=== PATIENT | male | born 1975 | race Caucasian/White ===

== ENCOUNTER 2021-02-26 07:20 | Inpatient (IN) | payer OTHER, SELFPAY ==
[~2021-02-26] VITALS: Ht 180.3 cm; Wt 103.9 kg
[2021-02-26 07:20] VITALS: BP 101/69
--- NOTE | 2021-02-26 07:20 | NUR ---
PT BIBA AND PLACED IN ER BED 1 FOR COVID ISOLATION.
--- NOTE | 2021-02-26 07:30 | NUR ---
PATIENT SPO2 88-89%, PT PLACED ON 2L NC PER MD LURICH ORDER.
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
[2021-02-26] MEDS ORDERED: ACETAMINOPHEN EXTRA STRENGTH 500 MG TAB PO ONE (08:00)
[2021-02-26 08:05] LABS: BASOPHILS % (AUTO) 0.3 % (0.0-2.0); HEMATOCRIT 47.5 % (36-52); LYMPHOCYTES # (AUTO) 0.6 K/uL (2.0-11.5); LYMPHOCYTES % (AUTO) 16.6 % (20.5-51.1); MEAN CORPUSCULAR HEMOGLOBIN 32 pg (27-31); MEAN CORPUSCULAR HGB CONC 34 g/dL (33-37); MEAN CORPUSCULAR VOLUME 94.4 fL (80-94); MONOCYTES # (AUTO) 0.3 K/uL (0.8-1.0); MONOCYTES % (AUTO) 7.9 % (1.7-9.3); NEUTROPHILS # (AUTO) 2.5 K/uL (1.8-7.7); NEUTROPHILS % (AUTO) 75.2 % (42.2-75.2); PLATELET COUNT (AUTO) 105 K/uL (140-450); RED BLOOD CELL COUNT(AUTO) 5.03 MIL/uL (4.20-6.10); RED CELL DISTRIBUTION WIDTH 13.7 % (11.6-13.7); WHITE BLOOD COUNT (AUTO) 3.4 K/uL (4.8-10.8)
--- NOTE | 2021-02-26 08:15 | NUR ---
MD ULRICH AT BEDSIDE EVALUATING PT.
[2021-02-26] MEDS ORDERED: MORPHINE SULFATE 4 MG/ML SYR IVP ONE (08:20)
[2021-02-26] MEDS ORDERED: MORPHINE SULFATE 4 MG/ML SYR ONE (08:24)
[2021-02-26 08:52] LABS: ALBUMIN 2.8 g/dL (3.4-5.0); ANION GAP 10.5 (8-16); CARBON DIOXIDE 27.3 mmol/L (21-32); CREATININE 1.1 mg/dL (0.6-1.3); POTASSIUM 3.8 mmol/L (3.5-5.1); TOTAL BILIRUBIN 0.6 mg/dL (0.0-1.0)
--- NOTE | 2021-02-26 09:00 | NUR ---
RECEIVED LAB VALUE COVID +
--- NOTE | 2021-02-26 09:14 | NUR ---
PT GIVEN PITCHER OF WATER FOR C/O THIRST. DRANK 2 CUPS OF WATER.
--- NOTE | 2021-02-26 09:39 | NUR ---
SPOKE WITH SPOUSE CHERYLE AND PROVIDED HER WITH UPDATE ON PATIENT.
[2021-02-26] MEDS ORDERED: ONDANSETRON 4 MG/2 ML VIAL IVP PRN (11:05)
[2021-02-26] MEDS ORDERED: NACL 0.9% 1,000 ML IV ONE (11:05)
[2021-02-26] MEDS ORDERED: ENOXAPARIN 100 MG/ML SYR SUBQ SCH (11:10)
[2021-02-26] MEDS ORDERED: remdesivir COMMUNICATION ORDER 1 EA MISC MC PRN (11:10)
[2021-02-26] MEDS ORDERED: remdesivir CLINICAL MONITORING 1 EA MISC MC PRN (11:15)
[2021-02-26] MEDS ORDERED: cefTRIAXone 1,000 MG VIAL ONE (11:21)
[2021-02-26 11:29] LABS: ALBUMIN 2.9 g/dL (3.4-5.0); BILIRUBIN,DIRECT 0.2 mg/dL (0.0-0.3); TOTAL BILIRUBIN 0.5 mg/dL (0.0-1.0)
[2021-02-26] MEDS: DEXAMETHASONE 10 MG/ML VIAL IVP SCH (12:00)
[2021-02-26] MEDS: ENOXAPARIN 100 MG/ML SYR SUBQ SCH ×2 (12:05→22:23)
[2021-02-26] MEDS ORDERED: AZITHROMYCIN 500 MG INJ VIAL IV ONE (12:37)
[2021-02-26] MEDS: AZITHROMYCIN 500 MG in DEXTROSE 5% 250 ML IV SCH (12:56)
[2021-02-26] MEDS ORDERED: REMDESIVIR. 200 MG in NACL 0.9% 100 ML IV SCH (13:00)
--- NOTE | 2021-02-26 13:45 | NUR ---
PT C/O 9/10 BACK PAIN AND REQUESTING PAIN MEDICATION, WILL MEDICATE PER PRN ORDER.
[2021-02-26] MEDS: MORPHINE SULFATE 2 MG/ML SYR IVP PRN ×2 (13:54→23:06)
--- NOTE | 2021-02-26 15:12 | NUR ---
PATIENT OBSERVED RESTING IN BED, VSS, RR EVEN AND UNLABORED.
--- NOTE | 2021-02-26 16:15 | NUR ---
RECEIVED VERBAL ORDER FROM DR ROGERS FOR REGULAR DIET. CANCELLED NPO AND STRICT I/O ORDER.
--- NOTE | 2021-02-26 16:15 | NUR ---
[place] argueta in [facility] - 02/26/21 at 1719 by [id number] RECEIVED VERBAL ORDER FOR REGULAR DIET. CANCELLED NPO AND STRICT I/O ORDER.
--- NOTE | 2021-02-26 16:20 | NUR ---
MD ROGERS AT BEDSIDE SPEAKING WITH PATIENT.
--- NOTE | 2021-02-26 21:26 | NUR ---
Patient will be admitted to care of DR. ROGERS. Admited to TELEMMETRY. Will go to room 114. Belongings list completed. Report to DONOVAN KHALIL.
--- NOTE | 2021-02-26 21:30 | NUR ---
RECEIVED REPORT FROM ER NURSE FOR ADMISSION BED 115.
[2021-02-26 21:35] VITALS: BP 118/81
--- NOTE | 2021-02-26 21:35 | NUR ---
RECEIVED PT FROM ER TO MST UNIT VIA GURNEY. PT ABLE TO WALK FROM THE GURNEY TO THE BED. PT IS ON 2L NC, AND ON CARDIAC TELE BOX FOR MONITORING.
--- NOTE | 2021-02-26 22:23 | NUR ---
GAVE SCHEDULED LOVENOX SUBQ. PLT IS 105. PT TOLERATED WELL
--- NOTE | 2021-02-26 23:06 | NUR ---
PATIENT COMPLAINS OF 7/10 CHEST PAIN. MEDICATED WITH PRN MORPHINE FOR PAIN RELIEF.
[2021-02-27] VITALS: BP 108/66
--- NOTE | 2021-02-27 | NUR ---
PATIENT ASLEEP, NO SIGNS OF DISTRESS, 2L NC, SR 78 HR ON TELEMETRY. SAFETY MEASURES IMPLEMENTED. CALL LIGHT WITHIN REACH.
--- NOTE | 2021-02-27 02:00 | NUR ---
PATIENT ASLEEP, NO SIGNS OF DISTRESS, ON 2L NC, SR ON TELE. SAFETY MEASURES IMPLEMENTED. CALL LIGHT WITHIN REACH.
[2021-02-27 04:00] VITALS: BP 117/68
--- NOTE | 2021-02-27 04:00 | NUR ---
PATIENT RESTING ON BED. NO SIGNS OF DISTRESS. 2L NC @ 97. SR, HR 78 ON TELE, SAFETY MEASURES IMPLEMENTED. CALL LIGHT WITHIN REACH.
--- NOTE | 2021-02-27 07:34 | NUR ---
ENDORSE PT TO DAY SHIFT NURSE FOR CONTINUITY OF CARE. PT ON STABLE CONDITION.
[2021-02-27 07:35] LABS: BASOPHILS % (AUTO) 0.2 % (0.0-2.0); EOSINOPHILS % (AUTO) 0.1 % (0.0-4.0); HEMATOCRIT 47.3 % (36-52); HEMOGLOBIN 15.7 g/dL (12.0-18.0); LYMPHOCYTES # (AUTO) 0.8 K/uL (2.0-11.5); LYMPHOCYTES % (AUTO) 22.8 % (20.5-51.1); MEAN CORPUSCULAR HEMOGLOBIN 32 pg (27-31); MEAN CORPUSCULAR HGB CONC 33 g/dL (33-37); MEAN CORPUSCULAR VOLUME 95.5 fL (80-94); MONOCYTES # (AUTO) 0.5 K/uL (0.8-1.0); MONOCYTES % (AUTO) 14.7 % (1.7-9.3); NEUTROPHILS # (AUTO) 2.2 K/uL (1.8-7.7); NEUTROPHILS % (AUTO) 62.2 % (42.2-75.2); PLATELET COUNT (AUTO) 121 K/uL (140-450); RED BLOOD CELL COUNT(AUTO) 4.96 MIL/uL (4.20-6.10); RED CELL DISTRIBUTION WIDTH 13.9 % (11.6-13.7); WHITE BLOOD COUNT (AUTO) 3.6 K/uL (4.8-10.8)
[2021-02-27 07:41] LABS: ALBUMIN 2.8 g/dL (3.4-5.0); BILIRUBIN,DIRECT 0.2 mg/dL (0.0-0.3); TOTAL BILIRUBIN 0.6 mg/dL (0.0-1.0)
--- NOTE | 2021-02-27 07:44 | NUR ---
PATIENT HAS BEEN SCREENED AND CATEGORIZED MODERATE NUTRITION RISK. PATIENT WILL BE SEEN WITHIN 3-5 DAYS OF ADMISSION. 02/28/21 03/02/[address]
[2021-02-27 07:45] LABS: ALBUMIN 2.8 g/dL (3.4-5.0); ANION GAP 10.4 (8-16); CARBON DIOXIDE 28.5 mmol/L (21-32); CREATININE 0.9 mg/dL (0.6-1.3); MAGNESIUM 1.7 mg/dL (1.8-2.4); POTASSIUM 3.9 mmol/L (3.5-5.1); TOTAL BILIRUBIN 0.6 mg/dL (0.0-1.0)
[2021-02-27] MEDS: ZINC SULF 220 MG CAP PO SCH (09:26)
[2021-02-27] MEDS: ASCORBIC ACID 500 MG TAB PO SCH (09:26)
[2021-02-27] MEDS: DEXAMETHASONE 10 MG/ML VIAL IVP SCH (09:27)
[2021-02-27] MEDS: MORPHINE SULFATE 2 MG/ML SYR IVP PRN (09:27)
[2021-02-27] MEDS: ENOXAPARIN 100 MG/ML SYR SUBQ SCH ×2 (09:30→20:32)
[2021-02-27 12:00] VITALS: BP 92/65
[2021-02-27] MEDS: ACETAMINOPHEN 325 MG TAB PO PRN (15:31)
[2021-02-27] MEDS: AZITHROMYCIN 500 MG in DEXTROSE 5% 250 ML IV SCH (15:34)
[2021-02-27] MEDS: REMDESIVIR. 100 MG in NACL 0.9% 100 ML IV SCH (15:35)
[2021-02-27 16:00] VITALS: BP 92/65
--- NOTE | 2021-02-27 19:40 | NUR ---
RECEIVED REPORT FROM AM NURSE FOR CONTINUITY OF CARE. PATIENT IN BED RESTING. NO S/S OF RESPIRATORY DISTRESS. ALL SAFETY MEASURES ARE IN PLACE. CALL LIGHT WITHIN REACH. WILL CONTINUE TO MONITOR.
[2021-02-27 20:00] VITALS: BP 110/74
--- NOTE | 2021-02-27 20:32 | NUR ---
DUE MEDS GIVEN PER MD ORDERED. NO COMPLAINTS OF PAIN AT THIS TIME.
[2021-02-28] VITALS: BP 96/62
[2021-02-28 04:00] VITALS: BP 96/64
--- NOTE | 2021-02-28 07:15 | NUR ---
ENDORSED TO AM NURSE FOR CONTINUITY OF CARE. PATIENT IS STABLE.
[2021-02-28 07:38] LABS: ALBUMIN 2.5 g/dL (3.4-5.0); BILIRUBIN,DIRECT 0.2 mg/dL (0.0-0.3); TOTAL BILIRUBIN 0.3 mg/dL (0.0-1.0)
[2021-02-28 08:00] VITALS: BP 109/69
--- NOTE | 2021-02-28 08:36 | NUR ---
Intermittent coughing and shortness of breath with activity noted, taught importance of cough and deep breathing. Taught importance of proning and patient verbalized understanding.
[2021-02-28] MEDS: DEXAMETHASONE 10 MG/ML VIAL IVP SCH (11:53)
[2021-02-28] MEDS: ASCORBIC ACID 500 MG TAB PO SCH (11:53)
[2021-02-28] MEDS: ZINC SULF 220 MG CAP PO SCH (11:53)
[2021-02-28] MEDS: ENOXAPARIN 100 MG/ML SYR SUBQ SCH ×2 (11:55→21:03)
[2021-02-28] MEDS: REMDESIVIR. 100 MG in NACL 0.9% 100 ML IV SCH (14:57)
[2021-02-28] MEDS: AZITHROMYCIN 500 MG in DEXTROSE 5% 250 ML IV SCH (14:58)
[2021-02-28 18:00] VITALS: BP 109/69
--- NOTE | 2021-02-28 19:35 | NUR ---
RECEIVED REPORT FROM AM NURSE. PATIENT IN BED RESTING WITH O2 VIA NC AT 2L TOLERATING WELL. NO SOB NOTED. SAFETY MEASURES IN PLACE. CALL LIGHT WITHIN REACH.
[2021-02-28 20:00] VITALS: BP 147/67
--- NOTE | 2021-02-28 21:03 | NUR ---
LOVENOX GIVEN ORDERED.
--- NOTE | 2021-02-28 21:25 | NUR ---
PT SLEEPING COMFORTABLY ON 2LNC f22 SPO2 96% HR 61 W/ NO DISTRESS NOTED AT THIS TIME WILL CONTINUE TO MONITOR
[2021-03-01] VITALS (14 sets, daily range): BP systolic 106–128; BP diastolic 58–78
[2021-03-01] MEDS: MORPHINE SULFATE 2 MG/ML SYR IVP PRN ×2 (02:43→18:30)
--- NOTE | 2021-03-01 02:43 | NUR ---
COMPLAINED OF MODERATE BACK PAIN. MORPHINE GIVEN ORDERED.
--- NOTE | 2021-03-01 03:39 | NUR ---
PT SLEEPING COMFORTABLY W/ NO DISTRESS NOTED PT WAS PLACED ON RA W/ SPO2 92/93% HR 63 5 MIN POST TITRATION [id number] RN AND WILL CONTINUE TO MONITOR
[2021-03-01] MEDS: ACETAMINOPHEN 325 MG TAB PO PRN (06:56)
--- NOTE | 2021-03-01 06:56 | NUR ---
COMPLAINED OF MILD PAIN, TYLENOL GIVEN ORDERED.
--- NOTE | 2021-03-01 07:30 | NUR ---
RECEIVED REPORT FROM TRANSPLANT WORKER. PATIENT AOX4, ON ROOM AIR, SATURATING WELL. NO C/O PAIN, RESPIRATIONS EVEN AND UNLABORED. NO S/S OF SOB OR DISTRESS NOTED. ON DROPLET ISOLATION FOR POSITIVE COVID. IV ON LAC 20G ON SL. D SAFETY PRECAUTIONS IN PLACE, CALL LIGHT WITHIN REACH, WILL CONTINUE TO MONITOR PATIENT.
--- NOTE | 2021-03-01 07:50 | NUR ---
ENDORSED TO AM NURSE FOR CONTINUITY OF CARE. PATIENT IS IN STABLE CONDITION.
[2021-03-01 08:18] LABS: ALBUMIN 2.6 g/dL (3.4-5.0); BILIRUBIN,DIRECT 0.1 mg/dL (0.0-0.3); TOTAL BILIRUBIN 0.3 mg/dL (0.0-1.0)
[2021-03-01] MEDS: DEXAMETHASONE 10 MG/ML VIAL IVP SCH (09:11)
[2021-03-01] MEDS: ASCORBIC ACID 500 MG TAB PO SCH (09:11)
[2021-03-01] MEDS: ZINC SULF 220 MG CAP PO SCH (09:11)
[2021-03-01] MEDS: ENOXAPARIN 100 MG/ML SYR SUBQ SCH ×2 (09:12→21:15)
--- NOTE | 2021-03-01 09:30 | NUR ---
DUE MORNING MEDS GIVEN, TOLERATED WELL
--- NOTE | 2021-03-01 10:45 | NUR ---
RESTING IN BED, NO C/O PAIN, WITH C/O SLIGHT SOB, O2SAT 93%. PLACED ON 2L O2 NC FOR COMFORT
--- NOTE | 2021-03-01 11:10 | NUR ---
SEEN BY JUAN ANTONIO TEJADA. NOTIFIED ABOUT EPISODE OF BRADYCARDIA WITH LONG PAUSES YESTERDAY. ORDERED TO TRANSFER TO ICU FOR MONITORING WITH EXTERNAL PACEMAKER TO STANDBY AT RATE OF 50BPM WITH THE ENERGY OUTPUT NEEDED
[2021-03-01] MEDS: AZITHROMYCIN 500 MG in DEXTROSE 5% 250 ML IV SCH (12:00)
[2021-03-01] MEDS: REMDESIVIR. 100 MG in NACL 0.9% 100 ML IV SCH (13:00)
--- NOTE | 2021-03-01 14:00 | NUR ---
TRANSFERRED TO ICU BED 3, CONNECTED TO BEDSIDE MONITOR. VITAL SIGNS STABLE AT THIS TIME
[2021-03-01] MEDS ORDERED: MAG SULF 2000 MG/WATER PREMIX 50 ML IV SCH (15:00)
--- NOTE | 2021-03-01 16:47 | NUR ---
PT AWAKE, RESTING IN BED, NO C/O PAIN, NO RESPIRATORY DISTRESS
--- NOTE | 2021-03-01 18:30 | NUR ---
with episode of productive cough, sob, and chest pain. hob elevated, deep breathing instructed, morphine given as ordered
--- NOTE | 2021-03-01 18:52 | NUR ---
pt resting in bed, no c/o pain, no sob
--- NOTE | 2021-03-01 19:15 | NUR ---
RECEIVED PATIENT FROM AM SHIFT NURSE FOR CONTINUITY OF CARE. ALERT AND ABLE TO MAKE NEEDS KNOWN. RESPIRATIONS EVEN, UNLABORED. CONTINUES ON O2 2L VIA NC, O2SAT 98%. PATIENT HAS GOOD COUGH EFFORT. NO SOB NOTED AT THIS TIME. S1/S2 AUSCULTATED. NO C/O PAIN. SKIN WARM, DRY. SALINE LOCK TO RIGHT HAND 22G PATENT/INTACT, CURRENTLY INFUSING MAGNESIUM. ABDOMEN SOFT, NONTENDER, NONDISTENDED. BOWEL SOUNDS ACTIVE x4 QUADRANTS. PATIENT IS CONTINENT OF B/B. CALL LIGHT IN REACH. PLAN OF CARE DISCUSSED. ISOLATION PRECAUTIONS OBSERVED BY ALL STAFF.
--- NOTE | 2021-03-01 19:32 | NUR ---
LATE ENTRY; NS BOLUS ENDED AT 1218.
--- NOTE | 2021-03-01 21:30 | NUR ---
SPOKE TO CHERYLE AT [phone] AND GAVE HER AN UPDATE ON PATIENT'S CONDITION. PATIENT IS RESTING COMFORTABLY IN BED. NO S/S RESPIRATORY DISTRESS. PATIENT STATED HE WAS ANXIOUS ABOUT REMOVING THE NASAL CANNULA; PROVIDED EDUCATION REGARDING OXYGEN THERAPY. PATIENT VERBALIZED UNDERSTANDING BUT NEEDS REINFORCEMENT AND ENCOURAGEMENT. NO C/O PAIN. PATIENT IS CLEAN/DRY. CALL LIGHT IN REACH. ISOLATION PRECAUTIONS OBSERVED.
--- NOTE | 2021-03-01 23:00 | NUR ---
MADE ROUNDS. PATIENT IS ASLEEP. NO S/S RESPIRATORY DISTRESS. PATIENT WITH EPISODES OF BRADYCARDIA. CALL LIGHT IN REACH. ISOLATION PRECAUTIONS OBSERVED.
[2021-03-02] VITALS (18 sets, daily range): BP systolic 102–134; BP diastolic 55–75
--- NOTE | 2021-03-02 01:30 | NUR ---
PATIENT STATED THAT HE HAS A CPAP AT HOME AND WOULD LIKE TO TRY USING OUR CPAP AT NIGHT. OFFERED TO PUT HIM ON TONIGHT BUT HE STATED THAT HE WAS COMFORTABLE AT THIS TIME AND WOULD LIKE TO JUST SLEEP WITHOUT IT TONIGHT. WILL ENDORSE TO AM SHIFT AND RT REGARDING PATIENT'S WISHES.
--- NOTE | 2021-03-02 03:30 | NUR ---
PATIENT IS ASLEEP. NO S/S RESPIRATORY DISTRESS. PATIENT CLEAN/DRY. CALL LIGHT IN REACH. ISOLATION PRECAUTIONS OBSERVED.
--- NOTE | 2021-03-02 05:12 | NUR ---
ALL NEEDS ANTICIPATED AND MET. PATIENT IS RESTING COMFORTABLY IN BED. NO S/S RESPIRATORY DISTRESS. NO C/O PAIN. PATIENT CLEAN/DRY. CALL LIGHT IN REACH. ISOLATION PRECAUTIONS OBSERVED.
[2021-03-02 06:04] LABS: ALBUMIN 2.6 g/dL (3.4-5.0); BILIRUBIN,DIRECT 0.1 mg/dL (0.0-0.3); TOTAL BILIRUBIN 0.3 mg/dL (0.0-1.0)
--- NOTE | 2021-03-02 07:27 | NUR ---
RECEIVED REPORT FROM AIRFIELD OPERATIONS SPECIALIST. PATIENT AOX4, ON 3L O2 VIA NC, SATURATING WELL. NO C/O PAIN, RESPIRATIONS EVEN AND UNLABORED. NO S/S OF SOB OR DISTRESS NOTED. SB ON MONITOR, HR 57. ON DROPLET ISOLATION FOR POSITIVE COVID. IV ON RH 22G ON SL. SAFETY PRECAUTIONS IN PLACE, CALL LIGHT WITHIN REACH, WILL CONTINUE TO MONITOR PATIENT.
[2021-03-02 08:24] LABS: ANION GAP 12.2 (8-16); CARBON DIOXIDE 27.9 mmol/L (21-32); CREATININE 0.8 mg/dL (0.6-1.3); POTASSIUM 4.1 mmol/L (3.5-5.1)
[2021-03-02] MEDS: ENOXAPARIN 100 MG/ML SYR SUBQ SCH ×2 (08:31→21:07)
[2021-03-02] MEDS: ASCORBIC ACID 500 MG TAB PO SCH (08:31)
[2021-03-02] MEDS: DEXAMETHASONE 10 MG/ML VIAL IVP SCH (08:31)
[2021-03-02] MEDS: ZINC SULF 220 MG CAP PO SCH (08:31)
[2021-03-02 08:35] LABS: BASOPHILS % (AUTO) 0.2 % (0.0-2.0); EOSINOPHILS % (AUTO) 0.1 % (0.0-4.0); HEMOGLOBIN 15.8 g/dL (12.0-18.0); LYMPHOCYTES % (AUTO) 16.7 % (20.5-51.1); MEAN CORPUSCULAR HEMOGLOBIN 32 pg (27-31); MEAN CORPUSCULAR HGB CONC 33 g/dL (33-37); MEAN CORPUSCULAR VOLUME 95.7 fL (80-94); MONOCYTES % (AUTO) 17.5 % (1.7-9.3); NEUTROPHILS # (AUTO) 3.9 K/uL (1.8-7.7); NEUTROPHILS % (AUTO) 65.5 % (42.2-75.2); PLATELET COUNT (AUTO) 172 K/uL (140-450); RED BLOOD CELL COUNT(AUTO) 5.02 MIL/uL (4.20-6.10); WHITE BLOOD COUNT (AUTO) 5.9 K/uL (4.8-10.8)
--- NOTE | 2021-03-02 10:36 | NUR ---
SEEN BY DR HE AND DR TONY
--- NOTE | 2021-03-02 10:36 | NUR ---
DUE MORNING MEDS GIVEN, TOLERATED WELL
[2021-03-02] MEDS: AZITHROMYCIN 500 MG in DEXTROSE 5% 250 ML IV SCH (12:00)
--- NOTE | 2021-03-02 12:30 | NUR ---
PT EATING LUNCH, NO C/O PAIN AT THIS TIME, NO SOB ON 2L NC, O2SAT 93-98%
[2021-03-02] MEDS: REMDESIVIR. 100 MG in NACL 0.9% 100 ML IV SCH (13:00)
--- NOTE | 2021-03-02 14:27 | NUR ---
03/02/21 RD INITIAL ASSESSMENT COMPLETED PLEASE REFER TO NUTRITION ASSESSMENT UNDER CARE ACTIVITY FOR ESTIMATED NUTRITIONAL NEEDS. 1. CONTINUE REGULAR DIET TOLERATED 2. RECOMMEND ENSURE BID - THIS WILL PROVIDE AN ADDITIONAL 350 KCALS AND [address] 3[address] TO FOLLOW-UP 3-5 DAYS, MODERATE RISK ENRIQUETA NELSON, RAJESH
--- NOTE | 2021-03-02 15:00 | NUR ---
PT RESTING IN BED, NO APPARENT RESPIRATORY DISTRESS, NO C/O PAIN
--- NOTE | 2021-03-02 15:42 | NUR ---
DC PLANNING: PT HAS ORDER FOR HOME O2 FAXED TO [facility] AND [facility]. RECEIVED A CALL FROM [facility] SPOKE WITH WILLY STATED WILL DELIVER THE HOME O2 ONCE IT'S APPROVED WITH [facility]. CM TO FOLLOW
--- NOTE | 2021-03-02 17:30 | NUR ---
SEEN AND EXAMINED BY DR MORIN, CLEARED PT FOR DOWNGRADE TO TELE
--- NOTE | 2021-03-02 17:53 | NUR ---
CALLED DR HE, NOTIFIED THAT PT IS CLEARED BY CARDIO. ORDERED TO DOWNGRADE TO TELE
--- NOTE | 2021-03-02 18:15 | NUR ---
UPDATE PT ABOUT PLAN OF CARE. VERBALIZED UNDERSTANDING
--- NOTE | 2021-03-02 19:15 | NUR ---
RECEIVED PATIENT FROM AM SHIFT NURSE FOR CONTINUITY OF CARE. ALERT AND ABLE TO MAKE NEEDS KNOWN. PATIENT IS WATCHING THE TV. RESPIRATIONS EVEN, UNLABORED. CONTINUES ON O2 2L VIA NC, O2SAT 98%. S1/S2 AUSCULTATED. NO C/O PAIN. SKIN WARM, DRY. SALINE LOCK TO RIGHT HAND 22G PATENT/INTACT. ABDOMEN SOFT, NONTENDER, NONDISTENDED. BOWEL SOUNDS ACTIVE x4 QUADRANTS. PATIENT IS CONTINENT OF B/B. CALL LIGHT IN REACH. PLAN OF CARE DISCUSSED. ISOLATION PRECAUTIONS OBSERVED BY ALL STAFF.
--- NOTE | 2021-03-02 21:30 | NUR ---
DUE MEDS GIVEN. PATIENT IS WATCHING TV AT THIS TIME. NO S/S RESPIRATORY DISTRESS. CONTINUES ON O2 2L VIA NC, O2SAT 98%. NO C/O PAIN. PATIENT IS CLEAN/DRY. CALL LIGHT IN REACH. ISOLATION PRECAUTIONS OBSERVED BY ALL STAFF.
--- NOTE | 2021-03-02 23:08 | NUR ---
PATIENT IS RESTING COMFORTABLY IN BED. NO S/S RESPIRATORY DISTRESS. NO C/O PAIN. PATIENT IS CLEAN/DRY. CALL LIGHT IN REACH. ISOLATION PRECAUTIONS OBSERVED.
[2021-03-03] VITALS: BP 115/65
--- NOTE | 2021-03-03 00:40 | NUR ---
PATIENT TRANSFERRED TO BED 7.
--- NOTE | 2021-03-03 01:07 | NUR ---
MADE ROUNDS. PATIENT IS ASLEEP. NO S/S RESPIRATORY DISTRESS. ISOLATION PRECAUTIONS OBSERVED. CALL LIGHT IN REACH.
[2021-03-03] MEDS: MORPHINE SULFATE 2 MG/ML SYR IVP PRN (03:23)
--- NOTE | 2021-03-03 03:30 | NUR ---
MEDICATED PATIENT FOR PAIN.
[2021-03-03 04:02] VITALS: BP_SYST 119; BP_SYST 123; BP_DIAS 65; BP_DIAS 77
--- NOTE | 2021-03-03 05:42 | NUR ---
PATIENT IS ASLEEP. NO S/S RESPIRATORY DISTRESS. PATIENT IS CLEAN/DRY. CALL LIGHT IN REACH. ISOLATION PRECAUTIONS IN PLACE.
[2021-03-03 06:17] LABS: ALBUMIN 2.7 g/dL (3.4-5.0); BILIRUBIN,DIRECT 0.1 mg/dL (0.0-0.3); TOTAL BILIRUBIN 0.3 mg/dL (0.0-1.0)
--- NOTE | 2021-03-03 07:24 | NUR ---
PATIENT TRANSFERRED TO [facility] AND REPORT GIVEN TO AM SHIFT NURSE FOR CONTINUITY OF CARE.
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
[2021-03-03 08:00] VITALS: BP 105/74
[2021-03-03] MEDS: ASCORBIC ACID 500 MG TAB PO SCH (08:42)
[2021-03-03] MEDS: ZINC SULF 220 MG CAP PO SCH (08:42)
[2021-03-03] MEDS: DEXAMETHASONE 10 MG/ML VIAL IVP SCH (08:42)
[2021-03-03] MEDS: ENOXAPARIN 100 MG/ML SYR SUBQ SCH (08:48)
--- NOTE | 2021-03-03 08:49 | NUR ---
ADMINISTERED PRESCRIBED MEDICATIONS PER MD ORDER, PT RECEIVED LOVENOX PLT 172, DEXAMETHASONE AND OTHER PRESCRIBED MEDICATION. WILL CONTINUE TO MONITOR PT FOR FOR SIDE EFFECTS OF MEDICATIONS.
--- NOTE | 2021-03-03 10:00 | NUR ---
MADE ROUNDS PT IS SLEEPING STILL ON 2 LPM OXYGEN VIA NC AND NO DISTRESS NOTED.
[2021-03-03] MEDS ORDERED: DEC4 PO (10:46)
[2021-03-03] MEDS ORDERED: VITC500 PO (10:46)
[2021-03-03] MEDS ORDERED: ZINC220C29 PO (10:46)
[2021-03-03] MEDS ORDERED: APIX5TAB PO (10:46)
[2021-03-03 12:00] VITALS: BP 108/78
--- NOTE | 2021-03-03 12:00 | NUR ---
MADE ROUNDS AND ASSISTED PT TO THE RESTROOM. CHECK VITAL SIGNS AND PT TOLERATED WELL NO DISTRESS NOTED. WILL CONTINUE TO MONITOR.
--- NOTE | 2021-03-03 14:40 | NUR ---
DISCHARGED INSTRUCTIONS GIVEN TO PATIENT AT THE BEDSIDE AND ENCOURAGED TO CONTINUE MEDICATION AND TO FOLLOW UP WITH SURGICAL SERVICES ASSISTANT AND PCP AND TO USE OXYGEN AT HOME. INSTRUCTED TO CONTINUE ISOLATION FOR TWO WEEKS AND TO DO HAND WASHING AND WEAR MASK. INCREASE WATER INTAKE AND EXERCISE. REMOVED ID BANDS AND IV COMPLETE AND NO BLEEDING. CHANGED PT CLOTHES AND PT TOOK ALL HIS BELONGINGS AND PT IS GOING HOME WITH OXYGEN AND OXYGEN CONCENTRATOR. ESCORTED TO [facility] PT IS GOING HOME ACCOMPANIED BY . PT IS STABLE.
== END 2021-03-03 14:50 | disposition home or self-care (01) | DRG 137 ==
LOC: MED 07:20 → MTU 11:07 → MIC 03-01 14:12 → MTU 03-03 07:10
PROVIDERS: ADMIT Hospitalist; ATTEND Hospitalist
PROC: XW033E5 Introduction of Remdesivir Anti-infective into Peripheral Vein, Percutaneous Approach, New Technology Group 5 (ICD-10-PCS; principal; 2021-02-26)
DX: U07.1 COVID-19 (principal); J96.01 Acute respiratory failure with hypoxia; J12.82 Pneumonia due to coronavirus disease 2019; M54.9 Dorsalgia, unspecified; R07.89 Other chest pain; R00.1 Bradycardia, unspecified; G47.33 Obstructive sleep apnea (adult) (pediatric); E66.9 Obesity, unspecified; Z68.31 Body mass index [BMI] 31.0-31.9, adult
CPT/HCPCS: 36415; 71045; 80048; 80053; 80076; 83735; 83880; 84484; 85025; 85379; 87040; 87081; 93005; 96361; 96365; 96375; 99285; J0456; J0696; J1100; J1650; J2270; J3475; J7060; Q0092

== ENCOUNTER 2021-03-12 22:24 | Emergency (ER) | payer OTHER, SELFPAY ==
[~2021-03-12] VITALS: Ht 180.3 cm; Wt 108.9 kg
[~2021-03-12 22:24] MED LIST: APIX5TAB PO; DEC4 PO; VITC500 PO; ZINC220C29 PO
[2021-03-12 23:25] VITALS: BP 135/82
--- NOTE | 2021-03-12 23:29 | NUR ---
TO LOBBY A/W BED AMBULATORY
== END 2021-03-13 01:19 | disposition left against medical advice (07) ==
LOC: MED 22:24
DX: R06.02 Shortness of breath (principal); Z53.21 Procedure and treatment not carried out due to patient leaving prior to being seen by health care provider

== ENCOUNTER 2021-12-31 04:10 | Emergency (ER) | payer OTHER ==
[~2021-12-31] VITALS: Ht 180.3 cm; Wt 102.1 kg
--- NOTE | 2021-12-31 04:10 | NUR ---
ALBA LOMAXS TAKEN TO BED 07.
--- NOTE | 2021-12-31 04:10 | NUR ---
Dr. Hall examining patient.
[2021-12-31 04:14] VITALS: BP 137/83
[2021-12-31] MEDS ORDERED: KETOROLAC 30 MG/ML VIAL IVP ONE (04:15)
[2021-12-31] MEDS ORDERED: HYDROcodone/APAP 5/325 MG 1 TAB TAB PO ONE (04:15)
--- NOTE | 2021-12-31 04:15 | NUR ---
46/M BIBA C/O RIGHT SIDED FLANK PAIN AND CONSTIPATION X5DAYS. PATIETN STATED THAT PAIN IS 10/10 AND SHARP. PATIETN STATED THAT PAIN HAS BEEN WORSENING AND IS NOT TOLERABLE. DENIES N/V/D/SOB/CP AT THIS TIME. PATIETN APPEARS TO BE IN DISTRESS, GUARDING THE RIGHT SIDE. RR ARE EVEN AND UNLABORED. PATIENT PLACED IN GOWN. BED LOW AND LOCKED. ALL NEEDS MET. PMHX GASTRITIS NKA
--- NOTE | 2021-12-31 04:26 | NUR ---
IV ESTABLISHED, BLOOD COLLECTED AND WALKED TO LAB.
--- NOTE | 2021-12-31 04:29 | NUR ---
PT TAKEN TO CT.
--- NOTE | 2021-12-31 04:29 | NUR ---
URINE COLLECTED AND WLKED TO LAB
--- NOTE | 2021-12-31 04:38 | NUR ---
PT RETURN FROM CT
[2021-12-31 05:04] LABS: APPEARANCE,URINE CLEAR (CLEAR); BILIRUBIN,URINE NEGATIVE (NEGATIVE); BLOOD, URINE TRACE-I (NEGATIVE); COLOR,URINE YELLOW (YELLOW); LEUKOCYTE ESTERASE ,URINE NEGATIVE (NEGATIVE); NITRITE, URINE NEGATIVE (NEGATIVE); UGLUCOSE NEGATIVE (NEGATIVE)
[2021-12-31 05:11] LABS: RBC,URINE 0-5 /HPF (0-5); WBC,URINE 0-5 /HPF (0-5)
[2021-12-31 05:19] LABS: BASOPHILS # (AUTO) 0.1 K/uL (0.00-0.22); BASOPHILS % (AUTO) 1.1 % (0.0-2.0); EOSINOPHILS # (AUTO) 0.2 K/uL (0-0.4); EOSINOPHILS % (AUTO) 2.3 % (0.0-4.0); HEMATOCRIT 47.6 % (36-52); HEMOGLOBIN 15.8 g/dL (12.0-18.0); LYMPHOCYTES % (AUTO) 11.4 % (20.5-51.1); MEAN CORPUSCULAR HEMOGLOBIN 32 pg (27-31); MEAN CORPUSCULAR HGB CONC 33 g/dL (33-37); MONOCYTES # (AUTO) 0.8 K/uL (0.8-1.0); NEUTROPHILS % (AUTO) 76.2 % (42.2-75.2); PLATELET COUNT (AUTO) 205 K/uL (140-450); RED BLOOD CELL COUNT(AUTO) 4.96 MIL/uL (4.20-6.10); RED CELL DISTRIBUTION WIDTH 13.4 % (11.6-13.7); WHITE BLOOD COUNT (AUTO) 9.2 K/uL (4.8-10.8)
[2021-12-31 05:27] LABS: BARBITURATE, URINE NEGATIVE ng/ml (NEG <=200); BENZODIAZEPINE, URINE NEGATIVE ng/mL (NEG <=200); CANNABINOID, URINE NEGATIVE ng/mL (NEG <=50); COCAINE, URINE NEGATIVE ng/mL (NEG <=300); OPIATE, URINE NEGATIVE ng/mL (NEG <=2000); PHENCYCLIDINE SCREEN,URINE NEGATIVE ng/mL (NEG <=25)
--- NOTE | 2021-12-31 05:38 | NUR ---
PATIETN IN BED RESTING COMFORTABLY. DOESNT APPEAR TO BE IN DISTRESS. RR EVEN AND UNLABORED. ALL NEEDS MET AT THIS TIME.
--- NOTE | 2021-12-31 05:41 | NUR ---
MD RAMOS AT BEDSIDE
[2021-12-31 05:52] LABS: ANION GAP 9.1 (8-16); CARBON DIOXIDE 28.9 mmol/L (21-32)
[2021-12-31 05:53] LABS: CREATININE 1.6 mg/dL (0.6-1.3)
[2021-12-31 05:55] LABS: ALBUMIN 3.6 g/dL (3.4-5.0)
[2021-12-31 05:58] LABS: TOTAL BILIRUBIN 0.7 mg/dL (0.0-1.0)
--- NOTE | 2021-12-31 06:00 | NUR ---
PATIENT STATED PAIN 0/10. ALL NEEDS MET
--- NOTE | 2021-12-31 06:19 | NUR ---
PATIETN RESTING IN BED. DOESNT APPEAR TO BE IN DISTRESS. ALL NEEDS MET
[2021-12-31] MEDS ORDERED: CEPH-588 PO (06:32)
[2021-12-31] MEDS ORDERED: ACET-8386 PO (06:32)
[2021-12-31] MEDS ORDERED: NAPR-54 PO (06:32)
--- NOTE | 2021-12-31 06:36 | NUR ---
MD RAMOS AT BEDSIDE
[2021-12-31] MEDS ORDERED: DOCU-299 PO (06:38)
--- NOTE | 2021-12-31 06:40 | NUR ---
IV removed, catheter intact and site benign. Applied folded 4x4 gauze and tape to stop bleeding.
[2021-12-31 06:43] VITALS: BP 127/71
--- NOTE | 2021-12-31 06:43 | NUR ---
Patient discharged with v/s stable. Written and verbal after care instructions given KIDNEY STONES and explained. Patient alert, oriented and verbalized understanding of instructions. Ambulatory with steady gait. All questions addressed prior to discharge. ID band removed. Patient advised to follow up with PMD. Rx of HYDROCONE/ACETAMINOPHEN, CEPHALEXIN AND NAPROXEN given.
--- NOTE | 2021-12-31 06:45 | NUR ---
Chart checked and completed.
== END 2021-12-31 06:43 | disposition home or self-care (01) ==
LOC: MED 04:10 → MERGE 04:10 → MED 06:43
DX: N20.1 Calculus of ureter (principal); F15.10 Other stimulant abuse, uncomplicated; Z79.899 Other long term (current) drug therapy; Z98.890 Other specified postprocedural states
CPT/HCPCS: 36415; 74176; 80053; 80305; 81001; 83690; 85025; 96374; 99284; J1885

== ENCOUNTER 2022-09-01 12:22 | Emergency (ER) | payer OTHER ==
[~2022-09-01] VITALS: Ht 180.3 cm; Wt 104.3 kg
[~2022-09-01 12:22] MED LIST changes: +ACET-8905 PO; +CEPH-588 PO; +DOCU-299 PO; +NAPR-54 PO
[2022-09-01 12:31] VITALS: BP 129/94
--- NOTE | 2022-09-01 12:45 | NUR ---
DR ROTHMAN AT BEDSIDE.
--- NOTE | 2022-09-01 12:48 | NUR ---
46 Y/O M BIB SELF FROM URGENT CARE C/O TESTICLE PAIN ON LEFT X 3 DAYS. PAIN SCALE 5/10 . NKA OR PMH
--- NOTE | 2022-09-01 13:26 | NUR ---
ULTRASOUND AT BEDSIDE.
[2022-09-01 14:23] VITALS: BP 129/94
--- NOTE | 2022-09-01 14:23 | NUR ---
Patient discharged with v/s stable. Written and verbal after care instructions given and explained. Patient verbalized understanding. Ambulatory with steady gait. All questions addressed prior to discharge. Advised to follow up with PMD.
--- NOTE | 2022-09-01 14:23 | NUR ---
The patient's care was reviewed and supervised by Aisha Alvarado, RN, RN.
== END 2022-09-01 14:26 | disposition home or self-care (01) ==
LOC: MED 12:22
DX: R10.30 Lower abdominal pain, unspecified (principal); N50.812 Left testicular pain; K46.9 Unspecified abdominal hernia without obstruction or gangrene; J44.9 Chronic obstructive pulmonary disease, unspecified; Z79.899 Other long term (current) drug therapy; Z79.01 Long term (current) use of anticoagulants; Z79.891 Long term (current) use of opiate analgesic; Z79.2 Long term (current) use of antibiotics; Z79.1 Long term (current) use of non-steroidal anti-inflammatories (NSAID)
CPT/HCPCS: 76870; 99284; Q0092

== ENCOUNTER 2022-09-04 04:21 | Emergency (ER) | payer OTHER ==
[~2022-09-04] VITALS: Ht 180.3 cm; Wt 104.3 kg
[2022-09-04 04:30] VITALS: BP 131/77
--- NOTE | 2022-09-04 04:30 | NUR ---
TO BED AMBULATORY
--- NOTE | 2022-09-04 04:42 | NUR ---
46YR OLD MALE BIB SELF C/O TESTICULAR PAIN X2DAYS. WAS SEEN HERE 2 DAYS AGO FOR THE SAME SX. DENIES INJURY. PAIN RETURNED TONIGHT 02/10 PAIN. LLQ PAIN NON RADIATING. PT IS A&OX4. HOB ELEVATED BED AT LOWEST POSITION NKDA NO MED HX
[2022-09-04] MEDS ORDERED: HYDROcodone/APAP 5/325 MG 1 TAB TAB PO ONE (05:40)
--- NOTE | 2022-09-04 06:18 | NUR ---
ULTRASOUND AT BEDSIDE
[2022-09-04 07:10] LABS: APPEARANCE,URINE CLEAR (CLEAR); BILIRUBIN,URINE NEGATIVE (NEGATIVE); BLOOD, URINE NEGATIVE (NEGATIVE); COLOR,URINE YELLOW (YELLOW); LEUKOCYTE ESTERASE ,URINE TRACE (NEGATIVE); NITRITE, URINE NEGATIVE (NEGATIVE); UGLUCOSE NEGATIVE (NEGATIVE)
[2022-09-04] MEDS ORDERED: IBUP-2213 PO (07:23)
[2022-09-04] MEDS ORDERED: ACET-8905 PO (07:25)
[2022-09-04] MEDS ORDERED: cefTRIAXone 500 MG in LIDOCAINE MPF 1% 1 ML IM ONE (07:25)
[2022-09-04] MEDS ORDERED: LEVO-481 PO (07:25)
[2022-09-04] MEDS ORDERED: ONDA-188 PO (07:25)
[2022-09-04] MEDS ORDERED: cefTRIAXone 500 MG VIAL ONE (07:34)
[2022-09-04] MEDS ORDERED: LIDOCAINE MPF 1% 5 ML ONE (07:34)
[2022-09-04 08:18] VITALS: BP 131/77
--- NOTE | 2022-09-04 08:19 | NUR ---
Patient discharged with v/s stable. Written and verbal after care instructions given and explained. Patient alert, oriented and verbalized understanding of instructions. Ambulatory with steady gait. All questions addressed prior to discharge. ID band removed. Patient advised to follow up with PMD. Rx of lEVOFLOXACIN, NORCO,IBUPROFEN AND ZOFRAN given. Patient educated on indication of medication including possible reaction and side effects. Opportunity to ask questions provided and answered.
== END 2022-09-04 08:16 | disposition home or self-care (01) ==
LOC: MED 04:21
DX: N45.3 Epididymo-orchitis (principal); J44.9 Chronic obstructive pulmonary disease, unspecified; J45.909 Unspecified asthma, uncomplicated; Z79.899 Other long term (current) drug therapy
CPT/HCPCS: 76870; 81001; 87086; 87491; 96372; 99285; J0696; J2001; Q0092

== ENCOUNTER 2023-08-08 10:37 | Emergency (ER) | payer OTHER ==
[~2023-08-08] VITALS: Ht 180.3 cm; Wt 122.5 kg
[~2023-08-08 10:37] MED LIST changes: +IBUP-2213 PO; +LEVO-481 PO; +ONDA-188 PO
[2023-08-08 11:31] VITALS: BP 114/86; PULSE 91; RESP 17; TEMP 97.8; O2SAT 100
[2023-08-08] MEDS ORDERED: KETOROLAC 60 MG/2 ML VIAL IM ONE (14:35)
[2023-08-08] MEDS ORDERED: CEPH-588 PO (14:44)
[2023-08-08] MEDS ORDERED: IBUP-2213 PO (14:44)
== END 2023-08-08 15:11 | disposition home or self-care (01) ==
LOC: MED 10:37
DX: L03.115 Cellulitis of right lower limb (principal); J44.9 Chronic obstructive pulmonary disease, unspecified; Z98.890 Other specified postprocedural states; Z79.899 Other long term (current) drug therapy; Z79.1 Long term (current) use of non-steroidal anti-inflammatories (NSAID); Z79.2 Long term (current) use of antibiotics; Z79.01 Long term (current) use of anticoagulants
CPT/HCPCS: 96372; 99283; J1885

== ENCOUNTER 2024-02-29 05:55 | Emergency (ER) | payer OTHER ==
[~2024-02-29] VITALS: Ht 180.3 cm; Wt 104.3 kg
[~2024-02-29 05:55] MED LIST changes: -ACET-8905 PO; +ACET500T99 PO; +AMOX1TAB15 PO; -CEPH-588 PO; -DEC4 PO; +DOXY-690 PO; -LEVO-481 PO; -NAPR-54 PO; -ONDA-188 PO; -ZINC220C29 PO
[2024-02-29 05:59] VITALS: BP 157/102; PULSE 91; RESP 20; TEMP 97.4; O2SAT 96
[2024-02-29] MEDS: NACL 0.9% 1,000 ML IV ONE (06:27)
[2024-02-29] MEDS: KETOROLAC 30 MG/ML VIAL IVP ONE (06:31)
[2024-02-29] MEDS: ALBUTEROL 0.083% 2.5 MG/3 ML NEBU INH ONE (06:37)
[2024-02-29 06:39] VITALS: PULSE 71; RESP 16; O2SAT 99
[2024-02-29 06:39] LABS: BASOPHILS % (AUTO) 0.6 % (0.0-2.0); EOSINOPHILS # (AUTO) 0.2 K/uL (0-0.4); EOSINOPHILS % (AUTO) 2.3 % (0.0-4.0); HEMATOCRIT 48.6 % (36-52); HEMOGLOBIN 16.4 g/dL (12.0-18.0); LYMPHOCYTES # (AUTO) 1.6 K/uL (2.0-11.5); LYMPHOCYTES % (AUTO) 23.4 % (20.5-51.1); MEAN CORPUSCULAR HEMOGLOBIN 33 pg (27-31); MEAN CORPUSCULAR HGB CONC 34 g/dL (33-37); MEAN CORPUSCULAR VOLUME 97.3 fL (80-94); MONOCYTES % (AUTO) 14.3 % (1.7-9.3); NEUTROPHILS # (AUTO) 4.1 K/uL (1.8-7.7); NEUTROPHILS % (AUTO) 59.4 % (42.2-75.2); PLATELET COUNT (AUTO) 188 K/uL (140-450); RED BLOOD CELL COUNT(AUTO) 4.99 MIL/uL (4.20-6.10); RED CELL DISTRIBUTION WIDTH 14.2 % (11.6-13.7); WHITE BLOOD COUNT (AUTO) 6.9 K/uL (4.8-10.8)
[2024-02-29 07:02] LABS: ANION GAP 13.6 (8-16); CALCIUM 8.7 mg/dL (8.5-10.1); CARBON DIOXIDE 22.9 mmol/L (21-32); POTASSIUM 4.5 mmol/L (3.5-5.1)
[2024-02-29 07:33] LABS: FLU A ANTIGEN negative (NEGATIVE); FLU B ANTIGEN negative (NEGATIVE)
[2024-02-29] MEDS ORDERED: AMOX1TAB8 PO (08:12)
[2024-02-29] MEDS ORDERED: IBUP-2230 PO (08:12)
[2024-02-29 08:30] VITALS: BP 133/75; PULSE 74; RESP 12; TEMP 98; O2SAT 97
== END 2024-02-29 08:30 | disposition home or self-care (01) ==
LOC: MED 05:55
DX: J18.9 Pneumonia, unspecified organism (principal); J44.9 Chronic obstructive pulmonary disease, unspecified; Z20.822 Contact with and (suspected) exposure to COVID-19; Z79.2 Long term (current) use of antibiotics; Z79.1 Long term (current) use of non-steroidal anti-inflammatories (NSAID); Z79.899 Other long term (current) drug therapy
CPT/HCPCS: 36415; 71045; 80048; 85025; 87426; 87804; 94640; 96361; 96374; 99284; J1885; J7030; J7613; Q0092